=== PATIENT | male | born 1930 | race Caucasian/White ===

== ENCOUNTER 2016-06-16 07:48 | Outpatient (CLI) | payer MEDICARE | END 2016-06-16 07:49 | disposition home or self-care (01) | DX: Z79.899 Other long term (current) drug therapy (principal) ==

== ENCOUNTER 2016-06-25 09:01 | Outpatient (CLI) | payer MEDICARE | END 2016-06-25 09:02 | disposition home or self-care (01) | DX: Z12.5 Encounter for screening for malignant neoplasm of prostate (principal); E78.5 Hyperlipidemia, unspecified; E11.9 Type 2 diabetes mellitus without complications | CPT/HCPCS: 36415; 80061; 83036; 83721; G0103 ==

== ENCOUNTER 2016-06-29 20:00 | Outpatient (CLI) | payer MEDICARE | END 2016-06-29 20:01 | disposition home or self-care (01) | DX: D64.9 Anemia, unspecified (principal) ==

== ENCOUNTER 2016-07-02 10:58 | Outpatient (CLI) | payer MEDICARE | END 2016-07-02 10:59 | disposition home or self-care (01) | DX: R97.20 Elevated prostate specific antigen [PSA] (principal) ==

== ENCOUNTER 2016-12-01 15:31 | Outpatient (CLI) | payer MEDICARE ==
[2016-12-01 11:52] LABS: BASOPHILS % (AUTO) 0.6 %; EOSINOPHILS # (AUTO) 0.2 10^3/uL (0.0-0.7); EOSINOPHILS % (AUTO) 4.6 %; HCT - HEMATOCRIT 38.6 % (42.0-52.0); HGB - HEMOGLOBIN 13.2 g/dL (14.0-18.0); LYMPHOCYTES # (AUTO) 1.2 10^3/uL (1.5-3.5); LYMPHOCYTES % (AUTO) 27.3 %; MEAN CORPUSCULAR HEMOGLOBIN 32.1 pg (27.0-31.0); MEAN CORPUSCULAR HGB CONC 34.1 g/dL (32.0-36.0); MEAN CORPUSCULAR VOLUME 94.2 fL (80.0-94.0); MEAN PLATELET VOLUME 8.6 fL (7.4-11.4); MONOCYTES # (AUTO) 0.5 10^3/uL (0.0-1.0); NEUTROPHILS # (AUTO) 2.6 10^3/uL (1.5-6.6); NEUTROPHILS % (AUTO) 56.5 %; UNCORRECTED WHITE BLOOD COUNT 4.6 x10^3/uL; WHITE BLOOD COUNT 4.6 x10^3/uL (4.8-10.8)
[2016-12-01 12:15] LABS: ALBUMIN/GLOBULIN RATIO 1.3 (1.0-2.2); BILIRUBIN,TOTAL 0.6 mg/dL (0.2-1.0); BUN - BLOOD UREA NITROGEN 23 mg/dL (6-20); CALCIUM 9.4 mg/dL (8.5-10.3); CARBON DIOXIDE - CO2 27 mmol/L (21-32); CHLORIDE 105 mmol/L (101-111); CHOL/HDL RATIO 2.3 (<5.0); CHOLESTEROL 135 mg/dL; GFR - MDRD 71 (>89); GLUCOSE 142 mg/dL (70-100); HDL CHOLESTEROL 59 mg/dL; LDL/HDL RATIO 1.1 (<3.6); POTASSIUM 4.2 mmol/L (3.5-5.0); SODIUM 139 mmol/L (135-145); TOTAL PROTEIN 7.3 g/dL (6.7-8.2); TRIGLYCERIDES 62 mg/dL; VLDL CHOLESTEROL 12 mg/dL
[2016-12-01 12:17] LABS: HEMOGLOBIN A1C 0.61 g/dL
== END 2016-12-01 15:32 | disposition home or self-care (01) ==
LOC: LAB.F 15:31
PROVIDERS: ATTEND Family Medicine
DX: I10 Essential (primary) hypertension (principal); E78.5 Hyperlipidemia, unspecified; D64.9 Anemia, unspecified; E11.9 Type 2 diabetes mellitus without complications
CPT/HCPCS: 36415; 80053; 80061; 83036; 85025

== ENCOUNTER 2017-09-07 09:23 | Outpatient (CLI) | payer MEDICARE ==
[2017-09-07 18:50] LABS: CALCIUM 9.3 mg/dL (8.5-10.3); CREATININE 0.9 mg/dL (0.6-1.2)
[2017-09-07 20:09] LABS: HB2 TOTAL 13.2 g/dL; HEMOGLOBIN A1C 0.59 g/dL; HEMOGLOBIN A1C % 6.2 % (4.6-6.2)
== END 2017-09-07 09:24 | disposition home or self-care (01) ==
LOC: LAB.F 09:23
PROVIDERS: ATTEND Physician Assistant Medical
DX: E11.9 Type 2 diabetes mellitus without complications (principal)
CPT/HCPCS: 36415; 80048; 83036

== ENCOUNTER 2018-09-14 12:27 | Outpatient (CLI) | payer MEDICARE ==
[2018-09-14 18:36] LABS: CREATININE,URINE 140.3 mg/dL; MICROALBUM/CREATININE RATIO,UR 15.7 ug/mg (<30.0); MICROALBUMIN,URINE 2.2 mg/dL (0-300.0)
[2018-09-14 18:58] LABS: CALCIUM 9.2 mg/dL (8.5-10.3)
[2018-09-14 19:54] LABS: HB2 TOTAL 11.8 g/dL; HEMOGLOBIN A1C 0.57 g/dL; HEMOGLOBIN A1C % 6.6 % (4.6-6.2)
== END 2018-09-14 12:28 | disposition home or self-care (01) ==
LOC: LAB.F 12:27
PROVIDERS: ATTEND Physician Assistant Medical
DX: E11.9 Type 2 diabetes mellitus without complications (principal)
CPT/HCPCS: 36415; 80048; 82043; 82570; 83036

== ENCOUNTER 2019-10-08 12:00 | Emergency (ER) | payer MEDICARE ==
--- NOTE | 2019-10-08 13:37 | XRAY Report ---
Reason: chills, soa Procedure Date: 10/08/2019 Accession Number: [id number] / [id number] Procedure: XR - Chest 2 View X-Ray CPT Code: 11563 Final Report FULL RESULT: EXAM: CHEST RADIOGRAPHY EXAM DATE: 10/08/2019 01:02 PM. CLINICAL HISTORY: Chills. Shortness of breath. COMPARISON: None. TECHNIQUE: 2 views. FINDINGS: Lungs/Pleura: Normal volumes. No focal infiltrate or evidence of edema. No pleural effusion or pneumothorax. Mediastinum: Heart size is normal. The aorta is mildly tortuous. Other: Degenerative changes within the spine and at the bilateral sacroiliac joints. IMPRESSION: No acute cardiopulmonary abnormality. RADIA
[2019-10-08 13:43] LABS: BASOPHILS % (AUTO) 0.3 %; HGB - HEMOGLOBIN 8.8 g/dL (14.0-18.0); LYMPHOCYTES # (AUTO) 0.8 10^3/uL (1.5-3.5); LYMPHOCYTES % (AUTO) 21.4 %; MEAN CORPUSCULAR HEMOGLOBIN 31.7 pg (27.0-31.0); MEAN CORPUSCULAR HGB CONC 33.5 g/dL (32.0-36.0); MEAN CORPUSCULAR VOLUME 94.6 fL (80.0-94.0); MONOCYTES # (AUTO) 1.3 10^3/uL (0.0-1.0); MONOCYTES % (AUTO) 35.1 %; NEUTROPHILS # (AUTO) 1.6 10^3/uL (1.5-6.6); NEUTROPHILS % (AUTO) 42.1 %; PLT - PLATELET COUNT 134 10^3/uL (130-450); RED BLOOD COUNT 2.78 10^6/uL (4.70-6.10); RED CELL DISTRIBUTION WIDTH 16.6 % (12.0-15.0); WHITE BLOOD COUNT 3.8 x10^3/uL (4.8-10.8)
[2019-10-08 13:59] LABS: ALBUMIN 3.6 g/dL (3.2-5.5); ALBUMIN/GLOBULIN RATIO 0.9 (1.0-2.2); BILIRUBIN,TOTAL 0.7 mg/dL (0.2-1.0); CALCIUM 8.7 mg/dL (8.5-10.3); CREATININE 1.1 mg/dL (0.6-1.2); CRP - C-REACTIVE PROTEIN 10.1 mg/dL (0-1.0); TOTAL PROTEIN 7.4 g/dL (6.7-8.2); URIC ACID 6.2 mg/dL (2.6-7.2)
[2019-10-08 14:07] LABS: DIFFERENTIAL COMMENT MANUAL=AUTO DIFF; PLATELET ESTIMATE, MANUAL NORMAL (130-450,000) (NORMAL); PLATELET MORPHOLOGY NORMAL APPEARANCE (NORMAL)
[2019-10-08] MEDS ORDERED: HYDROmorphone 1 MG/ML CARPUJECT IVP STA (14:10)
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
[2019-10-08] MEDS ORDERED: KETOROLAC 30 MG/ML VIAL IVP STA (15:00)
--- NOTE | 2019-10-08 15:01 | XRAY Report ---
Reason: ankle pain Procedure Date: 10/08/2019 Accession Number: [id number] / [id number] Procedure: XR - Ankle 3 View RT CPT Code: Final Report FULL RESULT: EXAM: RIGHT ANKLE RADIOGRAPHY EXAM DATE: 10/08/2019 02:31 PM. CLINICAL HISTORY: Ankle pain, swelling, and warmth for 3 days. COMPARISON: None. TECHNIQUE: 3 views. FINDINGS: Bones: The patient has healed prior fractures of the distal fibula and tibia. Fractures have healed with bone union across the syndesmosis distally. And old screw track is in the calcaneus. Mild osteopenia is present. No acute fractures. Joints: Moderate tibiotalar joint space narrowing and osteophyte formation is present. Soft Tissues: Soft tissue swelling surrounds the ankle. IMPRESSION: 1. Ankle soft tissue swelling. 2. Moderate tibiotalar joint osteoarthritis. 3. Old healed fractures of the distal tibia and fibula. RADIA
[2019-10-08 16:03] VITALS: BP 126/71
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
== END 2019-10-08 17:41 | disposition home or self-care (01) ==
LOC: ED 12:00
DX: M19.172 Post-traumatic osteoarthritis, left ankle and foot (principal); D64.9 Anemia, unspecified
CPT/HCPCS: 29515; 36415; 71046; 73610; 80053; 83605; 83690; 84550; 85025; 85651; 86140; 96374; 96375; 99284; J1170

== ENCOUNTER 2019-12-20 07:45 | Outpatient (CLI) | payer MEDICARE ==
[2019-12-20 15:49] LABS: ALBUMIN/GLOBULIN RATIO 1.2 (1.0-2.2); ALKALINE PHOSPHATASE 69 IU/L (42-121); ALT ALANINE AMINOTRANSFERASE 13 IU/L (10-60); AST ASPARTATE AMINOTRANSFERASE 17 IU/L (10-42); BILIRUBIN,TOTAL 0.7 mg/dL (0.2-1.0); BUN - BLOOD UREA NITROGEN 26 mg/dL (6-20); CALCIUM 9.1 mg/dL (8.5-10.3); CARBON DIOXIDE - CO2 29 mmol/L (21-32); CHLORIDE 102 mmol/L (101-111); CHOL/HDL RATIO 1.9 (<5.0); CHOLESTEROL 127 mg/dL; CREATININE 1.1 mg/dL (0.6-1.2); GLUCOSE 121 mg/dL (70-100); HDL CHOLESTEROL 66 mg/dL; LDL CHOLESTEROL,CALCULATED 49 mg/dL; LDL/HDL RATIO 0.7 (<3.6); SODIUM 136 mmol/L (135-145); TOTAL PROTEIN 7.3 g/dL (6.7-8.2); VLDL CHOLESTEROL 12 mg/dL
== END 2019-12-20 07:46 | disposition home or self-care (01) ==
LOC: LAB.S 07:45
PROVIDERS: ATTEND Internal Medicine
DX: I10 Essential (primary) hypertension (principal); E78.5 Hyperlipidemia, unspecified; E11.9 Type 2 diabetes mellitus without complications
CPT/HCPCS: 36415; 80053; 80061; 81599; 83036; 83721

== ENCOUNTER 2020-10-11 14:14 | Outpatient (CLI) | payer MEDICARE | END 2020-10-11 14:15 | disposition critical access hospital (66) | LOC: EMS 14:14 | DX: R42 Dizziness and giddiness (principal); R53.1 Weakness | CPT/HCPCS: A0425; A0429 ==

== ENCOUNTER 2020-10-11 14:43 | Emergency (ER) | payer MEDICARE ==
[2020-10-11] MEDS ORDERED: TETANUS/DIPHTHERIA/PERTUSSIS 0.5 ML SYRINGE IM ONE (15:03)
[2020-10-11] MEDS ORDERED: ACETAMINOPHEN 325 MG TABLET PO STA (15:03)
--- NOTE | 2020-10-11 15:04 | ED Physician Documentation ---
PD HPI HEAD INJURY - Stated complaint Stated Complaint: GLF - Chief complaint Chief Complaint: Trauma Hd/Nk - History obtained from History obtained from: Patient - Additional information Additional information: 89-year-old gentleman with history of trigeminal neuralgia status post radiofrequency ablation for same with resultant cranial neuropathies but otherwise a healthy javon was in his usual state of health walking up his very steep driveway and got dizzy and fell backwards and hit his right elbow and the back of his head on the ground. He denies significant headache. No loss of consciousness. Declines pain medication. Tetanus is unknown. Review of Systems Ten Systems: 10 systems reviewed and negative Constitutional: reports: Reviewed and negative Eyes: reports: Reviewed and negative Ears: reports: Reviewed and negative Nose: reports: Reviewed and negative Throat: reports: Reviewed and negative Cardiac: reports: Reviewed and negative PD PAST MEDICAL HISTORY - Past Medical History Past Medical History: Yes Cardiovascular: Hypertension Respiratory: None Neuro: None Endocrine/Autoimmune: Type 2 diabetes GI: None - Past Surgical History Past Surgical History: Yes General: Appendectomy Ortho: Other - Present Medications Home Medications: Ambulatory Orders Medication Instructions Recorded Confirmed Hydrocodone/Acetaminophen 1 - 2 each PO Q6H PRN #14 tablet 10/08/19 [Hydrocodon-Acetaminophen 5-325] Meloxicam [Mobic] 7.5 mg PO BID PRN #20 tablet 10/08/19 Wheelchair 1 unit TD ONCE #1 10/08/19 - Allergies Allergies/Adverse Reactions: Allergies Allergy/AdvReac Type Severity Reaction Status Date / Time oxycodone Allergy Rash Verified 10/11/20 14:52 Penicillins Allergy Rash Verified 10/11/20 14:52 - Social History Does the pt smoke?: No Smoking Status: Never smoker Does the pt drink ETOH?: Yes ETOH Use: Beer Does the pt have substance abuse?: No PD ED PE NORMAL - Vitals Vital signs reviewed: Yes - General General: Alert and oriented X 3, No acute distress - HEENT HEENT: PERRL, EOMI, Other (Ecchymosis and scrape on the central occiput. Mildly stuttered speech which he says is his baseline.) - Neck Neck: Supple, no meningeal sign, No bony TTP - Back Back: No CVA TTP, No spinal TTP - Derm Derm: Normal color, Warm and dry - Extremities Extremities: Other (Scrape on the right olecranon but full range of motion and no bony tenderness.) - Neuro Neuro: Alert and oriented X 3, Normal speech Results - Vitals Vitals: Vital Signs - 24 hr 10/11/20 14:48 Temperature 36.7 C Heart Rate 89 Respiratory 14 Rate Blood Pressure 137/79 H O2 Saturation 98 Oxygen O2 Source Room air - Rads (name of study) CT head and cervical spine Radiology: EMP read contemporaneously (Chronic and degenerative changes without acute trauma) Right elbow x-ray Radiology: EMP read contemporaneously (Small ossification adjacent to the lateral ulna, cannot exclude avulsion fracture.) PD MEDICAL DECISION MAKING - ED course ED course: Elderly gentleman presents after ground-level fall. The head and C-spine were negative. Potential small avulsion fracture of the right elbow. X-rays reviewed with our on-call orthopedist, Dr. Les Lou who felt that no specific treatment was necessary given the size. Departure - Departure Disposition: 01 Home, Self Care Clinical Impression: Ulna fracture Qualifiers: Encounter type: initial encounter Ulna location: proximal ulna Fracture type: closed Fracture morphology: other fracture Laterality: right Qualified Code(s): S52.091A - Other fracture of upper end of right ulna, initial encounter for closed fracture Elbow abrasion Qualifiers: Encounter type: initial encounter Laterality: right Qualified Code(s): S50.311A - Abrasion of right elbow, initial encounter Head injury Qualifiers: Encounter type: initial encounter Qualified Code(s): S09.90XA - Unspecified injury of head, initial encounter Condition: Good Record reviewed to determine appropriate education?: Yes Instructions: ED Head Injury Closed Comments: As discussed, there is a tiny little chip fracture in your right elbow. I reviewed the x-rays with our on-call orthopedist and he felt that given how small it is, think the size of a pinhead, no specific treatment is necessary other than ice and Tylenol. Return as needed for new or worsening symptoms and follow-up with your primary care physician, next available appointment.
--- NOTE | 2020-10-11 15:18 | XRAY Report ---
PROCEDURE: Elbow 3 View RT INDICATIONS: elbow inj TECHNIQUE: 3 views of the elbow were acquired. COMPARISON: None FINDINGS: Bones: There is a small ossification identified on the lateral aspect of the proximal ulna seen only on lateral view. No suspicious bony lesions. Soft tissues: Minimal elbow joint effusion. No suspicious soft tissue calcifications. IMPRESSION: Small ossification adjacent to the lateral ulna as above. Avulsion fracture cannot be excluded recomm end correlation point tenderness. Reviewed by: Mirta Starkey MD on 10/11/2020 3:17 PM PDT Approved by: Mirta Starkey MD on 10/11/2020 3:17 PM PDT Station ID: [id number]
--- NOTE | 2020-10-11 15:40 | CT Report ---
PROCEDURE: HEAD WO INDICATIONS: head inj TECHNIQUE: Noncontrast 4.5 mm thick angled axial sections acquired from the foramen magnum to the vertex. For r adiation dose reduction, the following was used: automated exposure control, adjustment of mA and/or kV according to patient size. COMPARISON: None. FINDINGS: Image quality: Excellent. CSF spaces: Basal cisterns are patent. No extra-axial fluid collections. Ventricles are normal in size and shape. Brain: No midline shift. No intracranial masses or hemorrhage. Burks-white matter interface is norm al. Skull and face: Calvarium and visualized facial bones are intact, without suspicious lesions. Sinuses: Visualized sinuses and mastoids are clear. IMPRESSION: No acute intracranial abnormality. Reviewed by: Venancio Berman on 10/11/2020 3:39 PM PDT Approved by: Venancio Berman on 10/11/2020 3:39 PM PDT Station ID: [id number]
--- NOTE | 2020-10-11 15:43 | CT Report ---
PROCEDURE: CERVICAL SPINE WO INDICATIONS: head inj TECHNIQUE: Noncontrast 3 mm thick sections acquired from the skull base to the T4 level. Sagittal and coronal r eformats were then constructed. For radiation dose reduction, the following was used: automated exp osure control, adjustment of mA and/or kV according to patient size. COMPARISON: None. FINDINGS: Image quality: Excellent. Bones: No fractures or dislocations. Visualized superior ribs are intact. Degenerative changes are present at C5-6 and C6-7 consistent with disc disease. At these levels there is disc space narrowing and osteophytes. Soft tissues: Prevertebral soft tissues are normal in thickness. No paravertebral hematomas. No ap ical pneumothoraces. IMPRESSION: No acute abnormality of the cervical spine. Reviewed by: Venancio Berman on 10/11/2020 3:42 PM PDT Approved by: Venancio Berman on 10/11/2020 3:42 PM PDT Station ID: [id number]
[2020-10-11 15:57] VITALS: BP 136/65
== END 2020-10-11 16:04 | disposition home or self-care (01) ==
LOC: EDUNIT# → ED 14:43
DX: S09.90XA Unspecified injury of head, initial encounter (principal); S52.001A Unspecified fracture of upper end of right ulna, initial encounter for closed fracture; W18.30XA Fall on same level, unspecified, initial encounter; Y93.01 Activity, walking, marching and hiking; Y92.007 Garden or yard of unspecified non-institutional (private) residence as the place of occurrence of the external cause; I10 Essential (primary) hypertension; E11.9 Type 2 diabetes mellitus without complications; Z23 Encounter for immunization
CPT/HCPCS: 70450; 72125; 73080; 90471; 90715; 99284; A9270

== ENCOUNTER 2020-11-09 07:07 | Outpatient (CLI) | payer MEDICARE ==
[2020-11-09 14:48] LABS: BASOPHILS % (AUTO) 0.5 %; EOSINOPHILS % (AUTO) 2.8 %; HCT - HEMATOCRIT 33.1 % (42.0-52.0); HGB - HEMOGLOBIN 10.3 g/dL (14.0-18.0); LYMPHOCYTES % (AUTO) 52.8 %; MEAN CORPUSCULAR HEMOGLOBIN 30.7 pg (27.0-31.0); MEAN CORPUSCULAR HGB CONC 31.1 g/dL (32.0-36.0); MEAN CORPUSCULAR VOLUME 98.8 fL (80.0-94.0); MEAN PLATELET VOLUME 12.7 fL (7.4-11.4); NEUTROPHILS % (AUTO) 27.4 %; PLT - PLATELET COUNT 119 10^3/uL (130-450); RED BLOOD COUNT 3.35 10^6/uL (4.70-6.10); RED CELL DISTRIBUTION WIDTH 17.4 % (12.0-15.0); WHITE BLOOD COUNT 2.1 x10^3/uL (4.8-10.8)
[2020-11-09 15:14] LABS: ABNORMAL LYMPHS % (MANUAL) 0 %
[2020-11-09 15:19] LABS: ALBUMIN/GLOBULIN RATIO 1.1 (1.0-2.2); ALKALINE PHOSPHATASE 81 IU/L (42-121); ALT ALANINE AMINOTRANSFERASE 14 IU/L (10-60); AST ASPARTATE AMINOTRANSFERASE 19 IU/L (10-42); BILIRUBIN,TOTAL 0.8 mg/dL (0.2-1.0); BUN - BLOOD UREA NITROGEN 29 mg/dL (6-20); CARBON DIOXIDE - CO2 28 mmol/L (21-32); CHLORIDE 102 mmol/L (101-111); CHOL/HDL RATIO 2.1 (<5.0); CHOLESTEROL 126 mg/dL; CREATININE 1.1 mg/dL (0.6-1.2); GFR - MDRD 63 (>89); GLUCOSE 137 mg/dL (70-100); HDL CHOLESTEROL 59 mg/dL; LDL CHOLESTEROL,CALCULATED 55 mg/dL; LDL/HDL RATIO 0.9 (<3.6); POTASSIUM 4.7 mmol/L (3.5-5.0); SODIUM 138 mmol/L (135-145); TOTAL PROTEIN 7.5 g/dL (6.7-8.2); TRIGLYCERIDES 59 mg/dL; VLDL CHOLESTEROL 12 mg/dL
[2020-11-09 16:12] LABS: BAND NEUTROPHILS % (MANUAL) 1 %; LYMPHOCYTES % (MANUAL) 46 %; MONOCYTES # (MANUAL) 0.4 10^3/uL (0.0-1.0); NEUTROPHILS # (MANUAL) 0.7 10^3/uL (1.5-6.6); PLATELET ESTIMATE, MANUAL DECREASED (<130,000) (NORMAL); PLATELET MORPHOLOGY NORMAL APPEARANCE (NORMAL); RBC MORPHOLOGY (MULTIPLE) 2+ ANISOCYTOSIS (NORMAL); WBC MORPHOLOGY (MULTIPLE) NORMAL APPEARANCE (NORMAL)
[2020-11-09 16:36] LABS: DIFFERENTIAL COMMENT MANUAL DIFFERENTIAL
[2020-11-09 20:02] LABS: ESTIMATED AVERAGE GLUCOSE 146 mg/dL (70-100); HEMOGLOBIN A1c% 6.7 % (4.27-6.07)
== END 2020-11-09 07:08 | disposition home or self-care (01) ==
LOC: LAB.S 07:07
PROVIDERS: ATTEND Internal Medicine
DX: I10 Essential (primary) hypertension (principal); E11.9 Type 2 diabetes mellitus without complications; R97.20 Elevated prostate specific antigen [PSA]
CPT/HCPCS: 36415; 80053; 80061; 83036; 83721; 84153; 85025

== ENCOUNTER 2020-11-12 16:05 | Outpatient (CLI) | payer MEDICARE ==
[2020-11-12 20:22] LABS: BASOPHILS % (AUTO) 0.4 %; EOSINOPHILS % (AUTO) 3.4 %; HCT - HEMATOCRIT 32.4 % (42.0-52.0); HGB - HEMOGLOBIN 10.5 g/dL (14.0-18.0); LYMPHOCYTES % (AUTO) 47.3 %; MEAN CORPUSCULAR HEMOGLOBIN 31.3 pg (27.0-31.0); MEAN CORPUSCULAR HGB CONC 32.4 g/dL (32.0-36.0); MEAN CORPUSCULAR VOLUME 96.7 fL (80.0-94.0); MEAN PLATELET VOLUME 11.8 fL (7.4-11.4); MONOCYTES % (AUTO) 16.7 %; NEUTROPHILS % (AUTO) 31.8 %; PLT - PLATELET COUNT 113 10^3/uL (130-450); RED BLOOD COUNT 3.35 10^6/uL (4.70-6.10); WHITE BLOOD COUNT 2.6 x10^3/uL (4.8-10.8)
[2020-11-12 20:32] LABS: ABNORMAL LYMPHS % (MANUAL) 0 %; BAND NEUTROPHILS % (MANUAL) 0 %
[2020-11-12 21:21] LABS: DIFFERENTIAL COMMENT MANUAL DIFFERENTIAL; EOSINOPHILS # (MANUAL) 0.1 10^3/uL (0-0.7); LYMPHOCYTES # (MANUAL) 1.6 10^3/uL (1.5-3.5); LYMPHOCYTES % (MANUAL) 60 %; MONOCYTES # (MANUAL) 0.2 10^3/uL (0.0-1.0); NEUTROPHILS # (MANUAL) 0.8 10^3/uL (1.5-6.6); PLATELET ESTIMATE, MANUAL DECREASED (<130,000) (NORMAL); PLATELET MORPHOLOGY NORMAL APPEARANCE (NORMAL); RBC MORPHOLOGY (MULTIPLE) 2+ ANISOCYTOSIS (NORMAL); REACTIVE LYMPHS % (MANUAL) 2 %
== END 2020-11-12 16:06 | disposition home or self-care (01) ==
LOC: LAB.S 16:05
PROVIDERS: ATTEND Internal Medicine
DX: D61.818 Other pancytopenia (principal)
CPT/HCPCS: 36415; 85025

== ENCOUNTER 2020-11-21 09:59 | Outpatient (CLI) | payer MEDICARE | END 2020-11-21 10:00 | disposition home or self-care (01) | LOC: LAB.S 09:59 | PROVIDERS: ATTEND Internal Medicine | DX: D61.818 Other pancytopenia (principal) | CPT/HCPCS: 81599; 88184; 88185; 88189 ==

== ENCOUNTER 2021-07-09 10:04 | Outpatient (CLI) | payer MEDICARE ==
[2021-07-09 15:01] LABS: HCT - HEMATOCRIT 30.1 % (42.0-52.0); HGB - HEMOGLOBIN 9.9 g/dL (14.0-18.0); LYMPHOCYTES # (AUTO) 0.5 10^3/uL (1.5-3.5); MEAN CORPUSCULAR HEMOGLOBIN 30.9 pg (27.0-31.0); MEAN CORPUSCULAR HGB CONC 32.9 g/dL (32.0-36.0); MEAN CORPUSCULAR VOLUME 94.1 fL (80.0-94.0); MONOCYTES # (AUTO) 0.2 10^3/uL (0.0-1.0); MONOCYTES % (AUTO) 18.6 %; NEUTROPHILS % (AUTO) 35.4 %; NRBC ABSOLUTE COUNT (AUTO) 0.02 x10^3/uL; NUCLEATED RED BLOOD CELLS AUTO 1.8 /100WBC; PLT - PLATELET COUNT 67 10^3/uL (130-450); RED CELL DISTRIBUTION WIDTH 16.9 % (12.0-15.0)
[2021-07-09 15:06] LABS: ALBUMIN 3.9 g/dL (3.2-5.5); ALBUMIN/GLOBULIN RATIO 1.2 (1.0-2.2); BILIRUBIN,TOTAL 0.6 mg/dL (0.2-1.0); CREATININE 1.2 mg/dL (0.6-1.2); POTASSIUM 4.5 mmol/L (3.5-5.0); TOTAL PROTEIN 7.1 g/dL (6.7-8.2)
[2021-07-09 15:20] LABS: NEUTROPHILS # (AUTO) 0.4 10^3/uL (1.5-6.6); WHITE BLOOD COUNT 1.1 x10^3/uL (4.8-10.8)
[2021-07-09 15:21] LABS: SLIDE REVIEW? Indicated
[2021-07-09 16:45] LABS: PLATELET ESTIMATE, MANUAL DECREASED (<130,000) (NORMAL); PLATELET MORPHOLOGY 1+ GIANT PLATELETS (NORMAL); WBC MORPHOLOGY (MULTIPLE) NORMAL APPEARANCE (NORMAL)
[2021-07-09 20:28] LABS: ESTIMATED AVERAGE GLUCOSE 148 mg/dL (70-100); HEMOGLOBIN A1c% 6.8 % (4.27-6.07)
== END 2021-07-09 10:05 | disposition home or self-care (01) ==
LOC: LAB.S 10:04
PROVIDERS: ATTEND Internal Medicine
DX: E11.9 Type 2 diabetes mellitus without complications (principal); D61.818 Other pancytopenia
CPT/HCPCS: 36415; 80053; 82728; 83036; 85025

== ENCOUNTER 2021-07-16 08:33 | Outpatient (CLI) | payer MEDICARE ==
[2021-07-16 14:35] LABS: HGB - HEMOGLOBIN 9.3 g/dL (14.0-18.0); LYMPHOCYTES # (AUTO) 0.7 10^3/uL (1.5-3.5); LYMPHOCYTES % (AUTO) 49.7 %; MEAN CORPUSCULAR HEMOGLOBIN 31.4 pg (27.0-31.0); MEAN CORPUSCULAR HGB CONC 33.2 g/dL (32.0-36.0); MEAN CORPUSCULAR VOLUME 94.6 fL (80.0-94.0); MONOCYTES # (AUTO) 0.3 10^3/uL (0.0-1.0); MONOCYTES % (AUTO) 18.9 %; NEUTROPHILS % (AUTO) 30.7 %; NRBC ABSOLUTE COUNT (AUTO) 0.04 x10^3/uL; NUCLEATED RED BLOOD CELLS AUTO 2.8 /100WBC; PLT - PLATELET COUNT 78 10^3/uL (130-450); RED BLOOD COUNT 2.96 10^6/uL (4.70-6.10); RED CELL DISTRIBUTION WIDTH 17.1 % (12.0-15.0)
[2021-07-16 16:29] LABS: WHITE BLOOD COUNT 1.4 x10^3/uL (4.8-10.8)
[2021-07-16 16:30] LABS: NEUTROPHILS # (AUTO) 0.4 10^3/uL (1.5-6.6); SLIDE REVIEW? Indicated
[2021-07-16 16:32] LABS: DIFFERENTIAL COMMENT MANUAL=AUTO DIFF; PLATELET ESTIMATE, MANUAL DECREASED (<130,000) (NORMAL); PLATELET MORPHOLOGY NORMAL APPEARANCE (NORMAL); RBC MORPHOLOGY (MULTIPLE) NORMAL APPEARANCE (NORMAL)
== END 2021-07-16 08:34 | disposition home or self-care (01) ==
LOC: LAB.S 08:33
PROVIDERS: ATTEND Internal Medicine
DX: D61.818 Other pancytopenia (principal)
CPT/HCPCS: 36415; 85025